=== PATIENT | male | born 1975 | race Caucasian/White ===

== ENCOUNTER 2017-01-28 08:57 | Emergency (ER) | payer SELFPAY ==
[2017-01-28 09:04] VITALS: BP 138/88
--- NOTE | 2017-01-28 09:32 | ER Document Report ---
HPI - HPI Patient complains to provider of: calf pain Onset: Yesterday Onset/Duration: Sudden Quality of pain: Achy Pain Level: 5 Context: [place] the beach [place] when [place] was in the ocean jumping of her ways and he developed sudden calf pain. Range of motion intact with pain with walking and flexion and extension of his ankle. Patient denies any history of blood clots. Denies any direct trauma. As medical history significant for osteoarthritis of bilateral knees and previous discectomy of the cervical spine. Current smoker, denies any drug use, social alcohol use. [facility] - DERM Skin Color: Normal Past Medical History - Social History Smoking Status: Current Every Day Smoker Family History: Reviewed & Not Pertinent Patient has suicidal ideation: No Patient has homicidal ideation: No Renal/ Medical History: Denies: Hx Peritoneal Dialysis Vertical Provider Document - CONSTITUTIONAL Agree With Documented VS: Yes Exam Limitations: No Limitations General Appearance: WD/WN, No Apparent Distress - INFECTION CONTROL TRAVEL OUTSIDE OF THE [place] IN LAST 30 DAYS: No - RESPIRATORY O2 Sat by Pulse Oximetry: 99 - CARDIOVASCULAR Pulses: Normal: Popliteal, Dorsalis pedis - MUSCULOSKELETAL/EXTREMETIES Musculoskeletal/Extremeties: MAEW, FROM, Tender - over calf muscle, No Edema Notes: no erythema - NEURO Level of Consciousness: Awake, Alert, Appropriate Motor/Sensory: No Motor Deficit, No Sensory Deficit - DERM Integumentary: Warm, Dry, No Rash. negative: Abscess, Laceration Course - Re-evaluation Re-evalutation: 01/28/17 09:51 Is a 42-year-old male who is hemodynamic stable, no acute distress and afebrile. Presentation today is consistent with a muscle strain that he suffered from yesterday. Patient educated on anti-inflammatories and ice will be given crutches. Patient educated on range of motion exercises to perform at home. Patient agrees with plan is stable for discharge home - Vital Signs Vital signs: Temp Pulse Resp BP Pulse Ox 97.8 F 70 16 138/88 H 99 01/28/17 09:02 01/28/17 09:02 01/28/17 09:02 01/28/17 09:02 01/28/17 09:02 Discharge - Discharge Clinical Impression: Strain of calf muscle Qualifiers: Encounter type: initial encounter Laterality: right Qualified Code(s): C32.643C - Strain of other muscle(s) and tendon(s) at lower leg level, right leg , initial encounter Condition: Good Disposition: HOME, SELF-CARE Instructions: Muscle Strain ([facility]), Use of Fwbn-Byd-Qanxiev Ibuprofen ([facility]), Ice & Elevation ([facility]) Forms: Special Work Note
[2017-01-28] MEDS ORDERED: IBUPROFEN 800 MG TABLET PO ONE (09:53)
== END 2017-01-28 09:52 | disposition home or self-care (01) ==
LOC: ER 08:57
DX: S86.811A Strain of other muscle(s) and tendon(s) at lower leg level, right leg, initial encounter (principal); M25.561 Pain in right knee; M25.562 Pain in left knee; M79.604 Pain in right leg; M79.605 Pain in left leg; F17.200 Nicotine dependence, unspecified, uncomplicated; X58.XXXA Exposure to other specified factors, initial encounter
CPT/HCPCS: 99283

== ENCOUNTER 2018-08-02 11:44 | Emergency (ER) | payer OTHER ==
--- NOTE | 2018-08-02 13:45 | ER Document Report ---
ED Medical Screen (RME) - General TRAVEL OUTSIDE OF THE [place] IN LAST 30 DAYS: No <RAYSHAWN KEITH - Last Filed: 08/02/18 13:44> <MARTI PETERS - Last Filed: 08/02/18 20:06> - General Chief Complaint: Scrotal Pain, Acute Onset Stated Complaint: TESTICULAR PAIN Time Seen by Provider: 08/02/18 13:44 Notes: Patient says he is having pain in his right testicle for the last 3 days. It has been mostly constant pain. Not certain whether he is having swelling of the testicle. He has had brief episodes of pain in the testicle ever since he was a child. He has had ultrasounds done previously that did not show any abnormalities. Denies any difficulty urinating or any symptoms from urinating. Has not had any discharge. No fevers. No abdominal surgeries. No unusual activities recently. Not straining lifting. PMH: GERD, HTN, chronic pain on oxycodone. (RAYSHAWN KEITH) - Related Data Allergies/Adverse Reactions: Penicillins Allergy (Verified 08/02/18 13:35) Past Medical History - Social History Chew tobacco use (# tins/day): No Frequency of alcohol use: Occasional Drug Abuse: None - Past Medical History Cardiac Medical History: Reports: Hx Hypertension Renal/ Medical History: Denies: Hx Peritoneal Dialysis GI Medical History: Reports: Hx Gastroesophageal Reflux Disease Past Surgical History: Reports: Hx Orthopedic Surgery - neck, right arm - Immunizations Hx Diphtheria, Pertussis, Tetanus Vaccination: Yes <RAYSHAWN KEITH - Last Filed: 08/02/18 13:44> - Vital signs Vitals: Temp Pulse Resp BP Pulse Ox 98.2 F 92 16 133/81 H 94 08/02/18 12:11 08/02/18 12:11 08/02/18 12:11 08/02/18 12:11 08/02/18 12:11 Course - Laboratory Result Diagrams: 08/02/18 16:31 08/02/18 16:31 <MARTI PETERS - Last Filed: 08/02/18 20:06> - Vital Signs Vital signs: Temp Pulse Resp BP Pulse Ox 98.2 F 92 16 133/81 H 94 08/02/18 12:11 08/02/18 12:11 08/02/18 12:11 08/02/18 12:11 08/02/18 12:11 - Laboratory Laboratory results interpreted by me: 08/02/18 08/02/18 16:31 16:31 ESR 16 H Carbon Dioxide 31 H C-Reactive Protein 32.1 H Doctor's Discharge <RAYSHAWN KEITH - Last Filed: 08/02/18 13:44> <MARTI PETERS Iraida - Last Filed: 08/02/18 20:06> - Discharge Clinical Impression: Testicular pain, right, Pelvic pain in male Condition: Stable Disposition: HOME, SELF-CARE Instructions: Pelvic Pain ([facility]), Testicular Pain ([facility]) Additional Instructions: PELVIC PAIN: There are many causes of pain in the pelvic area. The cause could be the t ubes, ovaries, uterus, intestines, appendix, pelvic muscles and connective tissue, or the urinary tract. The cause of your pelvic pain is not clear. However, it seems safe to treat you outside the hospital. If the pain sounds like a temporary problem, we sometimes wait to see if it goes away. Other patients may need additional tests, such as pelvic ultrasound or cultures. Conditions may change. Call us or come back for reexamination if any problems occur, such as: (1) Pain that becomes more severe, steady, or becomes concentrated in one specific area. Also, pain that is more severe with movement or coughing. (2) Vomiting that persists or becomes more frequent. (3) Blood in the vomitus, urine, or bowel movements. Blood in the stool may have a tarry or black appearance. (4) Shaking chills or fever greater than 100 degrees. (5) The abdomen becomes more distended or swollen. (6) Bowel movements cease. (7) Heavy vaginal bleeding. PAIN MEDICATION INJECTION: You have received an injection of a pain medication. You should experience significant pain relief within 45 minutes. This drug is a narcotic -- it will impair your judgement, slow your reaction time and make you sleepy (as well as relieve your pain). Narcotics also can cause nausea. You should not drive, work with machinery, or perform any task requiring mental alertness until all effects of the medication are gone -- six to eight hours. Do not take any alcohol, or sedatives, and do not take any other medication without checking with your physician. ANTIBIOTIC THERAPY: You have been given an antibiotic prescription. It's important that you take all the medication, unless instructed otherwise by your physician. Failure to complete the entire course can result in relapse of your condition. Common side effects of antibiotics include nausea, intestinal cramping, or diarrhea. Women may develop vaginal yeast infections, and babies can get yeast (thrush) in the mouth following the use of antibiotics. Contact your physician if you develop significant side effects from this medication. Allergy to this antibiotic can result in hives, wheezing, faintness, or i tching. If symptoms of allergy occur, stop the medication and call the doctor. CEPHALOSPORINS: An antibiotic of the cephalosporin class has been prescribed. This type of antibiotic covers a wide variety of infections, including those of the skin, lungs, middle ear, and urinary tract. This antibiotic is somewhat similar to the penicillin family. In rare cases, a person who is allergic to penicillin will also be allergic to this medication. If you have had a severe allergic reaction to penicillin, and have not taken this antibiotic since that time, notify your doctor. Antibiotics which cover many germs ("broad spectrum" antibiotics) are more likely to cause diarrhea or "yeast" infections. Women prone to vaginal yeast problems may suffer an attack after taking this antibiotic. In infants, oral thrush (white spots "stuck" on the cheek) or yeast diaper rash may result. See your doctor if these problems occur. Call the doctor at once if you develop hives, itching, shortness of breath, or lightheadedness. DOXYCYCLINE: Doxycycline (Vibramycin, Doryx) is an antibiotic of the tetracycline family. This type of drug is useful for infections of the respiratory tract and genital tract, and is sometimes used for intestinal infections. Unlike most tetracyclines, doxycycline can be taken with food. It is longer acting, and (usually) less prone to side effects than regular tetracycline. Tetracycline antibiotics can stain immature teeth and SHOULD NOT BE TAKEN BY CHILDREN, NURSING MOTHERS, OR WOMEN. Tetracyclines can make you more prone to sunburn. Abdominal cramping, nausea, and diarrhea are occasional side effects. Women may experience vaginal yeast infections. Call the doctor at once if you develop hives, itching, shortness of breath, or lightheadedness. AZITHROMYCIN: Azithromycin (Zithromax) is a broad spectrum antibiotic in the same class as erythromycin. It can treat a variety of bacterial infections, but is most frequently used for respiratory infections. Azithromycin is extremely long-lasting. It accumulates in body tissues and continues to kill bacteria for many days. In order to improve absorption, Azithromycin should be taken at least one hour before or two hours after a meal. It does not have the same strong tendency to upset the stomach as erythromycin and is usually very well t olerated. Patients who have had a rash or other true allergic reactions to erythromycin should not take this medication. Call if you develop gastrointestinal distress, severe diarrhea, rash, hives, itching, or shortness of breath. METRONIDAZOLE: Metronidazole (Flagyl) has been prescribed. This medication is used to kill a type of bacteria called anaerobes, and protozoan parasites such as trichomonas and Giardia. Flagyl often causes a metallic taste in the mouth and mild nausea. Do not use alcohol in any form with Flagyl (including alcohol in medication elixirs). Flagyl interacts with alcohol to cause flushing, palpitations, headache, stomach cramps, and vomiting. Do not use Flagyl if you are taking Antabuse (disulfiram). Call the doctor at once if you develop rash, shortness of breath, itching, or lightheadedness. ORAL NARCOTIC MEDICATION: You have been given a prescription for pain control. This medication is a narcotic. It's best taken with food, as nausea can result if taken on an empty stomach. Don't operate machinery or drive within six hours of taking this medication. Do not combine this medicine with alcohol, or with any medication which can cause sedation (such as cold tablets or sleeping pills) unless you get permission from the physician. Narcotics tend to cause constipation. If possible, drink plenty of fluids and eat a diet high in fiber and fruits. Please be aware that prescription narcotics also have the potential for abuse. People become addicted to these medications because of the general sense of wellbeing that they induce. This feeling along with a significant reduction in tension, anxiety, and aggression provides a stimulating seductive quality to these drugs. Once your pain is under control, we encourage you to discard your unused narcotics. FOLLOW-UP CARE: If you have been referred to a physician for follow-up care, call the physicians office for an appointment as you were instructed or within the next two days. If you experience worsening or a significant change in your symptoms, notify the physician immediately or return to the Emergency Department at any time for re-evaluation.Testicular Pain Sometimes we can't prove the exact cause of testicle pain. Pain in the testicle can be caused by many different problems, including viral infections of the testicle, urinary tract infection, kidney stones, inflammation of the epididymis (the sac behind the testicle), hernia, dilated veins in the scrotum, or subtle injury. The most serious causes of testicular pain are tumor or twisting of the testicle. An ultrasound exam often shows what's wrong. When the initial testing doesn't show a cause for the pain, we usually refer to a urologist. Rest. Gentle warmth may help with symptoms. It's usually helpful to wear underwear that gives good support to the testicles ("briefs" instead of "boxers"). Call the doctor or return if there is sudden worsening of pain, fever, vomiting, testicle swelling, or discoloration of the scrotum. We do not have a urologist to refer to from the hospital however there are some in the area. 1 of the ones that usually will take patients we see And need follow-up is [facility] urology they are located at [address] [place] [address]. in [place], [place] the number there is [phone]. You may try to contact them first thing in the morning to see if they can work you in. Again should you have any concerns or problems return to ER for recheck. Prescriptions: Ketorolac Tromethamine [Toradol 10 mg Tablet] 10 mg PO Q6HP PRN #24 tablet PRN Reason: Hyoscyamine Sulfate [Levsin 0.125 Tablet] 0.25 mg PO Q4 #30 tablet Oxycodone HCl/Acetaminophen [Percocet 5-325 mg Tablet] 1 tab PO Q4H PRN #12 tablet PRN Reason: Forms: Elevated Blood Pressure
[2018-08-02 14:14] LABS: APPEARANCE,URINE CLEAR; BILIRUBIN,URINE NEGATIVE (NEGATIVE); COLOR,URINE YELLOW; GLUCOSE, URINE NEGATIVE (NEGATIVE); KETONES,URINE NEGATIVE (NEGATIVE); LEUKOCYTE ESTERASE,URINE NEGATIVE (NEGATIVE); NITRITE,URINE NEGATIVE (NEGATIVE); PROTEIN,URINE NEGATIVE (NEGATIVE); URINE SPECIFIC GRAVITY 1.016; UROBILINOGEN,URINE NEGATIVE mg/dL (<2.0)
--- NOTE | 2018-08-02 15:12 | RADIOLOGY REPORT (SQ) ---
EXAM DESCRIPTION: U/S SCROTUM W/DOPPLER COMPLETED DATE/TIME: 08/02/2018 3:04 pm REASON FOR STUDY: Painful right testicle times 3 days. COMPARISON: None. TECHNIQUE: Static and realtime franz scale imaging of the scrotum and testes. Selected color Doppler and spectral images recorded to document blood flow. LIMITATIONS: None. FINDINGS: RIGHT: TESTICLE: Normal size. Normal echotexture. Normal blood flow. No mass. EPIDIDYMIS: 2 mm cyst. HYDROCELE OR VARICOCELE: No. HERNIA OR EXTRA-TESTICULAR MASS: No. OTHER: No other significant finding. LEFT: TESTICLE: Normal size. Normal echotexture. Normal blood flow. No mass. EPIDIDYMIS: Normal. HYDROCELE OR VARICOCELE: No. HERNIA OR EXTRA-TESTICULAR MASS: No. OTHER: No other significant finding. IMPRESSION: NO EVIDENCE OF TESTICULAR MASS OR TORSION. TECHNICAL DOCUMENTATION: JOB ID: [id number] [employer]- All Rights Reserved Reading location - IP/workstation name: [email or web address]
[2018-08-02] MEDS ORDERED: ONDANSETRON HCL INJ/PF 4 MG/2 ML SDV IV ONE (15:44)
[2018-08-02] MEDS ORDERED: HYDROMORPHONE HCL INJ/PF 2 MG/ML AMPULE IV ONE ×2 (15:44→17:38)
[2018-08-02 16:46] LABS: ABSOLUTE BASOPHILS # (AUTO) 0.1 10^3/uL (0.0-0.2); ABSOLUTE EOSINOPHILS # (AUTO) 0.3 10^3/uL (0.0-0.6); ABSOLUTE MONOCYTES (AUTO) 0.7 10^3/uL (0.1-1.4); ABSOLUTE NEUT (AUTO) 4.6 10^3/uL (1.7-8.2); BASOPHILS % (AUTO) 0.8 % (0-2); EOSINOPHILS % (AUTO) 3.9 % (0-6); HEMATOCRIT 44.1 % (37.9-51.0); HEMOGLOBIN 15.2 g/dL (13.5-17.0); LYMPHOCYTES % (AUTO) 26.4 % (13-45); MEAN CORPUSCULAR HEMOGLOBIN 31.9 pg (27.0-33.4); MEAN CORPUSCULAR HGB CONC 34.5 g/dL (32.0-36.0); MEAN CORPUSCULAR VOLUME 93 fl (80-97); MONOCYTES % (AUTO) 8.8 % (3-13); PLATELET COUNT 237 10^3/uL (150-450); RED BLOOD COUNT 4.77 10^6/uL (4.35-5.55); RED CELL DISTRIBUTION WIDTH 12.8 % (11.5-14.0); SEGMENTED NEUTROPHILS % (AUTO) 60.1 % (42-78); TOTAL CELLS COUNTED % (AUTO) 100 %; WHITE BLOOD COUNT 7.6 10^3/uL (4.0-10.5)
[2018-08-02 17:17] LABS: ANION GAP 8 (5-19); BLOOD UREA NITROGEN 13 mg/dL (7-20); C-REACTIVE PROTEIN 32.1 mg/L (<10.0); CALCIUM 9.1 mg/dL (8.4-10.2); CARBON DIOXIDE 31 mmol/L (22-30); CHLORIDE 100 mmol/L (98-107); GLUCOSE 94 mg/dL (75-110); POTASSIUM 4.3 mmol/L (3.6-5.0); SODIUM 139.3 mmol/L (137-145)
[2018-08-02 17:24] LABS: ERYTHROCYTE SEDIMENTATION RATE 16 mm/hr (0-15)
[2018-08-02] MEDS ORDERED: KETOROLAC TROMETHAMINE INJ/PF 30 MG/1 ML SDV IV ONE (17:38)
--- NOTE | 2018-08-02 18:36 | RADIOLOGY REPORT (SQ) ---
EXAM DESCRIPTION: CT ABD/PELVIS NO ORAL OR IV COMPLETED DATE/TIME: 08/02/2018 6:24 pm REASON FOR STUDY: Question kidney stone right side COMPARISON: None. TECHNIQUE: CT scan of the abdomen and pelvis performed without intravenous or oral contrast. Images reviewed with lung, soft tissue, and bone windows. Reconstructed coronal and sagittal MPR images revi ewed. All images stored on PACS. All CT scanners at this facility use dose modulation, iterative reconstruction, and/or weight based d osing when appropriate to reduce radiation dose to as low as reasonably achievable (ALARA). [facility]: Dose Right [facility]: CareDose [facility]: Dose Right [facility]: Teradose 4D [facility]: [employer] RADIATION DOSE: CT Rad equipment meets quality standard of care and radiation dose reduction techniq ues were employed. CTDIvol: 12.1 mGy. DLP: 740 mGy-cm.mGy. LIMITATIONS: None. FINDINGS: LOWER CHEST: Atelectasis or scarring at the right lung base. NON-CONTRASTED LIVER, SPLEEN, ADRENALS: Evaluation limited by lack of IV contrast. No identified sign ificant masses. PANCREAS: No masses. No peripancreatic inflammatory changes. GALLBLADDER: No identified stones by CT criteria. No inflammatory changes to suggest cholecystitis. RIGHT KIDNEY AND URETER: No suspicious masses. Assessment limited by lack of IV contrast. No signif icant calcifications. No hydronephrosis or hydroureter. LEFT KIDNEY AND URETER: No suspicious masses. Assessment limited by lack of IV contrast. Peripheral nonobstructive calculus. No hydronephrosis or hydroureter. AORTA AND RETROPERITONEUM: No aneurysm. No retroperitoneal masses or adenopathy. BOWEL AND PERITONEAL CAVITY: No obvious masses or inflammatory changes. No free fluid. APPENDIX: Normal. PELVIS, BLADDER, AND ABDOMINAL WALL:No abnormal masses. No free fluid. Bladder normal. BONES: No significant findings. OTHER: No other significant finding. IMPRESSION: NO SIGNIFICANT OR ACUTE PROCESS IN THE ABDOMEN OR PELVIS. COMMENT: Quality ID # [id number]: Final reports with documentation of one or more dose reduction techniques (e.g., Automated exposure control, adjustment of the mA and/or kV according to patient size, use of iterative reconstruction technique) TECHNICAL DOCUMENTATION: JOB ID: [id number] [employer]- All Rights Reserved Reading location - IP/workstation name: [email or web address]
[2018-08-02 20:22] VITALS: BP 132/82
--- NOTE | 2018-08-03 01:46 | ER Document Report ---
ED GI/ - General Chief Complaint: Scrotal Pain, Acute Onset Stated Complaint: TESTICULAR PAIN Time Seen by Provider: 08/02/18 13:44 Mode of Arrival: Ambulatory Information source: Patient, Relative Notes: I had not saved patient's original chart and I inappropriately canceled it by mistake. This is a recall of that chart. Patient is a 43-year-old male comes emergency room and excess amount of pain. He has complaint of right testicular pain for the past 3 days that is increased substantially over the past 24 hours. Patient states the only time he finds comfort is when he walks. He states it runs down into his right testicle. He also states that he is not been able to sleep for 2 days. The pain is been such that it has not allowed him to sleep. He states that he has had discomfort in his generalized area since he was a teenager it would come last a few minutes and go away. This is the first time this ever lasted any length of time. [facility] and sent him to ER for a testicular ultrasound. stated that the only difference that when she sees it it looks a little more purple than usual. Patient admits to having history of hypertension but does not take any medications currently for he smokes about half pack of cigarettes a day and he works as a cell salesman. Currently patient does not have a primary care provider. Patient was originally documented at 1431 abuse and ultrasound for over 2 hours. TRAVEL OUTSIDE OF THE [place] IN LAST 30 DAYS: No - HPI Patient complains to provider of: Testicular pain Onset: Other - 3 days Timing/Duration: Sudden, Persistent, Worse Quality of pain: Sharp, Stabbing, Throbbing Severity at maximum: Severe Severity in ED: Severe Pain Level: 5 Context: denies: Lifting, Out of the country travel, , Recent trauma, Other Location: Right testicle. No: Left flank, Right flank, Low back, Suprapubic Sexual history: Active Associated symptoms: denies: Dysuria, Erection problem, Fever, Penile discharge, Radiates to back, Shortness of breath, Urinary frequency, Urinary retention, Urinary urgency, Vomiting Exacerbated by: Supine, Sitting, Standing, Movement. denies: Walking Relieved by: Other Similar symptoms previously: Yes Recently seen / treated by doctor: No - Related Data Allergies/Adverse Reactions: Penicillins Allergy (Verified 08/02/18 13:35) Past Medical History - General Information source: Patient, Relative - Social History Smoking Status: Current Every Day Smoker Cigarette use (# per day): Yes Chew tobacco use (# tins/day): No Smoking Education Provided: Yes Frequency of alcohol use: None Drug Abuse: None Lives with: Family Family History: Reviewed & Not Pertinent Patient has suicidal ideation: No Patient has homicidal ideation: No - Past Medical History Cardiac Medical History: Reports: Hx Hypertension Renal/ Medical History: Denies: Hx Peritoneal Dialysis GI Medical History: Reports: Hx Gastroesophageal Reflux Disease Past Surgical History: Reports: Hx Orthopedic Surgery - neck, right arm - Immunizations Hx Diphtheria, Pertussis, Tetanus Vaccination: Yes Review of Systems - Review of Systems Constitutional: No symptoms reported EENT: No symptoms reported Cardiovascular: No symptoms reported Respiratory: No symptoms reported Gastrointestinal: No symptoms reported. denies: Abdominal pain Genitourinary: See HPI, Pain Male Genitourinary: See HPI, Testicular pain. denies: Erectile dysfunction, Penile discharge Musculoskeletal: No symptoms reported Skin: No symptoms reported Hematologic/Lymphatic: No symptoms reported Neurological/Psychological: No symptoms reported -: Yes All other systems reviewed and negative Physical Exam - Vital signs Vitals: Temp Pulse Resp BP Pulse Ox 98.2 F 92 16 133/81 H 94 08/02/18 12:11 08/02/18 12:11 08/02/18 12:11 08/02/18 12:11 08/02/18 12:11 Interpretation: Hypertensive - Notes Notes: PHYSICAL EXAMINATION: GENERAL: Patient is a well-nourished well-developed 43-year-old male who is in no apparent distress but in obvious pain and discomfort. Patient not able to find a position of comfort [place] still holding his testicles. He is actually walking back and forth and mild diaphoresis. HEAD: Atraumatic, normocephalic. NECK: Normal range of motion, supple without lymphadenopathy LUNGS: Breath sounds clear to auscultation bilaterally and equal. No wheezes rales or rhonchi. HEART: Regular rate and rhythm without murmurs ABDOMEN: Examination patient's abdomen is totally benign. He has bowel sounds in all 4 quads. Is soft nontender nondistended even in the pelvic region there is no reproducible tenderness to palpation or percussion or even deep ballottement in the lower portions of the lower abdomen. He has some very faint mild tenderness in the suprapubic region to palpation and ballottement. Testicular exam is also benign. Patient standing both testicles hanging equally. Cremaster reflex is normal and both sides. Palpation of each testicle shows no epididymal tenderness. In following the inguinal canal on both sides there is no tenderness to palpation there is no sign of a hernia. I cannot reproduce any type of pain the patient states exist there currently. It appears the patient is not pretending and he is really in serious amount of discomfort and pain but I cannot localize it to any one area. I cannot localize it to any area. I examined him over and over again without any causative reason for him to hurt. Musculoskeletal: Normal range of motion, no pitting or edema. No cyanosis. NEUROLOGICAL: . Normal speech, normal gait. Normal sensory, motor exams PSYCH: Normal mood, normal affect. SKIN: Warm, Dry, normal turgor, no rashes or lesions noted. Course - Re-evaluation Re-evalutation: 08/03/18 01:50 As stated I was unable to find any cause of reason the patient was hurting so badly. I discussed the case with Dr. Villa again we decided to go ahead and do a CT of the abdomen and pelvis in case we are missing a stone even though there was no blood in his urine I also did add on some labs added on a sed rate and CRP. CRP came back extensively elevated at 31 and the sed rate came back at 16 which is one-point higher than normal. I not exactly sure what this means white count was normal so I do not believe this to be an infectious process but it could be an inflammatory type of a presentation. At any given rate accident with patient and and discussed it with them he is pretty much out of pain after receiving another milligram of Dilaudid and Toradol. I still send him home on pain medication though he is taking in chronic pain medication for his neck I have written on the prescription and put in his note that he must contact him first his primary to okay an additional amount of medication for the discom fort and pain he is feeling an acute setting. Other than that he will lose his contract and I made this quite clear. I also gave him some Toradol tablets seen so it seemed to help some as well and something for nausea. I have given him the name of [facility]rology and a number to call here in her local office in [place]. I have informed him that I cannot find anything this could harm him tonight and that we got his pain under control and he needs to follow- up with urology for the rest of it. Patient was more than happy with the care that he received as was his . I informed them I am happy you can find anything serious which to me is a when. So often we find things we do not want to find have to explain him. At this time I am discharging patient home with the medications as discussed and he will follow-up with [facility] tomorrow. 08/03/18 01:52 As stated in the open I inadvertently hit a your ice on my note what I thought I was going back in to a REM note and so I not exactly sure of the time the patient was discharged that here. - Vital Signs Vital signs: Temp Pulse Resp BP Pulse Ox 98.3 F 83 13 132/82 H 96 08/02/18 20:19 08/02/18 20:19 08/02/18 20:19 08/02/18 20:19 08/02/18 20:19 - Laboratory Result Diagrams: 08/02/18 16:31 08/02/18 16:31 Laboratory results interpreted by me: 08/02/18 08/02/18 16:31 16:31 ESR 16 H Carbon Dioxide 31 H C-Reactive Protein 32.1 H Discharge - Discharge Clinical Impression: Testicular pain, right, Pelvic pain in male Condition: Stable Disposition: HOME, SELF-CARE Instructions: Pelvic Pain ([facility]), Testicular Pain ([facility]) Additional Instructions: PELVIC PAIN: There are many causes of pain in the pelvic area. The cause could be the tubes, ovaries, uterus, intestines, appendix, pelvic muscles and connective tissue, or the urinary tract. The cause of your pelvic pain is not clear. However, it seems safe to treat you outside the hospital. If the pain sounds like a temporary problem, we sometimes wait to see if it goes away. Other patients may need additional tests, such as pelvic ultrasound or cultures. Conditions may change. Call us or come back for reexamination if any problems occur, such as: (1) Pain that becomes more severe, steady, or becomes concentrated in one specific area. Also, pain that is more severe with movement or coughing. (2) Vomiting that persists or becomes more frequent. (3) Blood in the vomitus, urine, or bowel movements. Blood in the stool may have a tarry or black appearance. (4) Shaking chills or fever greater than 100 degrees. (5) The abdomen becomes more distended or swollen. (6) Bowel movements cease. (7) Heavy vaginal bleeding. PAIN MEDICATION INJECTION: You have received an injection of a pain medication. You should experience significant pain relief within 45 minutes. This drug is a narcotic -- it will impair your judgement, slow your reaction time and make you sleepy (as well as relieve your pain). Narcotics also can cause nausea. You should not drive, work with machinery, or perform any task requiring mental alertness until all effects of the medication are gone -- six to eight hours. Do not take any alcohol, or sedatives, and do not take any other medication without checking with your physician. ANTIBIOTIC THERAPY: You have been given an antibiotic prescription. It's important that you take all the medication, unless instructed otherwise by your physician. Failure to complete the entire course can result in relapse of your condition. Common side effects of antibiotics include nausea, intestinal cramping, or diarrhea. Women may develop vaginal yeast infections, and babies can get yeast (thrush) in the mouth following the use of antibiotics. Contact your physician if you develop significant side effects from this medication. Allergy to this antibiotic can result in hives, wheezing, faintness, or itching. If symptoms of allergy occur, stop the medication and call the doctor. CEPHALOSPORINS: An antibiotic of the cephalosporin class has been prescribed. This type of antibiotic covers a wide variety of infections, including those of the skin, lungs, middle ear, and urinary tract. This antibiotic is somewhat similar to the penicillin family. In rare cases, a person who is allergic to penicillin will also be allergic to this medication. If you have had a severe allergic reaction to penicillin, and have not taken this antibiotic since that time, notify your doctor. Antibiotics which cover many germs ("broad spectrum" antibiotics) are more likely to cause diarrhea or "yeast" infections. Women prone to vaginal yeast problems may suffer an attack after taking this antibiotic. In infants, oral thrush (white spots "stuck" on the cheek) or yeast diaper rash may result. See your doctor if these problems occur. Call the doctor at once if you develop hives, itching, shortness of breath, or lightheadedness. DOXYCYCLINE: Doxycycline (Vibramycin, Doryx) is an antibiotic of the tetracycline family. This type of drug is useful for infections of the respiratory tract and genital tract, and is sometimes used for intestinal infections. Unlike most tetracyclines, doxycycline can be taken with food. It is longer acting, and (usually) less prone to side effects than regular tetracycline. Tetracycline antibiotics can stain immature teeth and SHOULD NOT BE TAKEN BY CHILDREN, NURSING MOTHERS, OR WOMEN. Tetracyclines can make you more prone to sunburn. Abdominal cramping, ines sea, and diarrhea are occasional side effects. Women may experience vaginal yeast infections. Call the doctor at once if you develop hives, itching, shortness of breath, or lightheadedness. AZITHROMYCIN: Azithromycin (Zithromax) is a broad spectrum antibiotic in the same class as erythromycin. It can treat a variety of bacterial infections, but is most frequently used for respiratory infections. Azithromycin is extremely long-lasting. It accumulates in body tissues and continues to kill bacteria for many days. In order to improve absorption, Azithromycin should be taken at least one hour before or two hours after a meal. It does not have the same strong tendency to upset the stomach as erythromycin and is usually very well tolerated. Patients who have had a rash or other true allergic reactions to erythromycin should not take this medication. Call if you develop gastrointestinal distress, severe diarrhea, rash, hives, itching, or shortness of breath. METRONIDAZOLE: Metronidazole (Flagyl) has been prescribed. This medication is used to kill a type of bacteria called anaerobes, and protozoan parasites such as trichomonas and Giardia. Flagyl often causes a metallic taste in the mouth and mild nausea. Do not use alcohol in any form with Flagyl (including alcohol in medication elixirs). Flagyl interacts with alcohol to cause flushing, palpitations, headache, stomach cramps, and vomiting. Do not use Flagyl if you are taking Antabuse (disulfiram). Call the doctor at once if you develop rash, shortness of breath, itching, or lightheadedness. ORAL NARCOTIC MEDICATION: You have been given a prescription for pain control. This medication is a narcotic. It's best taken with food, as nausea can result if taken on an empty stomach. Don't operate machinery or drive within six hours of taking this medication. Do not combine this medicine with alcohol, or with any medication which can cause sedation (such as cold tablets or sleeping pills) unless you get permission from the physician. Narcotics tend to cause constipation. If possible, drink plenty of fluids and eat a diet high in fiber and fruits. Please be aware that prescription narcotics also have the potential for abuse. People become addicted to these medications because of the general sense of wellbeing that they induce. This feeling along with a significant reduction in tension, anxiety, and aggression provides a stimulating seductive quality to these drugs. Once your pain is under control, we encourage you to discard your unused narcotics. FOLLOW-UP CARE: If you have been referred to a physician for follow-up care, call the physicians office for an appointment as you were instructed or within the next two days. If you experience worsening or a significant change in your symptoms, notify the physician immediately or return to the Emergency Department at any time for re-evaluation.Testicular Pain Sometimes we can't prove the exact cause of testicle pain. Pain in the testicle can be caused by many different problems, including viral infections of the testicle, urinary tract infection, kidney stones, inflammation of the epididymis (the sac behind the testicle), hernia, dilated veins in the scrotum, or subtle injury. The most serious causes of testicular pain are tumor or twisting of the testicle. An ultrasound exam often shows what's wrong. When the initial testing doesn't show a cause for the pain, we usually refer to a urologist. Rest. Gentle warmth may help with symptoms. It's usually helpful to wear underwear that gives good support to the testicles ("briefs" instead of "box ers"). Call the doctor or return if there is sudden worsening of pain, fever, vomiting, testicle swelling, or discoloration of the scrotum. We do not have a urologist to refer to from the hospital however there are some in the area. 1 of the ones that usually will take patients we see And need follow-up is [facility] they are located at [address] [place] [address]. in [place], [place] the number there is [phone]. You may try to contact them first thing in the morning to see if they can work you in. Again should you have any concerns or problems return to ER for recheck. Prescriptions: Ketorolac Tromethamine [Toradol 10 mg Tablet] 10 mg PO Q6HP PRN #24 tablet PRN Reason: Hyoscyamine Sulfate [Levsin 0.125 Tablet] 0.25 mg PO Q4 #30 tablet Oxycodone HCl/Acetaminophen [Percocet 5-325 mg Tablet] 1 tab PO Q4H PRN #12 tablet PRN Reason: Forms: Elevated Blood Pressure, Return to Work
== END 2018-08-02 20:30 | disposition home or self-care (01) ==
LOC: ER 11:44
DX: N50.811 Right testicular pain (principal); R10.2 Pelvic and perineal pain; I10 Essential (primary) hypertension; F17.210 Nicotine dependence, cigarettes, uncomplicated; R61 Generalized hyperhidrosis; Z79.899 Other long term (current) drug therapy; Z88.0 Allergy status to penicillin
CPT/HCPCS: 96376; 99284; 96374; 96375; 36415; 85025; 85652; 86140; 80048; 81001; 76870; 93976; 74176; J1885; J1170; J2405

== ENCOUNTER 2019-08-26 07:43 | Emergency (ER) | payer OTHER ==
--- NOTE | 2019-08-26 09:09 | ER Document Report ---
HPI - HPI Time Seen by Provider: 08/26/19 08:52 Pain Level: 3 Context: Patient is a 44-year-old male who presents to the emergency department with a chief complaint of right lower jaw pain. He noticed it yesterday and today got progressively worse. Patient states he has not had any antibiotics. He states he is not sure if it is his tooth or his jaw. Denies any fever, shortness of breath, difficulty breathing, body aches. - EENT EENT: DENIES: Sore Throat, Ear Pain, Eye problems - NEURO Neurology: DENIES: Headache, Weakness, Vision blurred, Dizzinesss / Vertigo - CARDIOVASCULAR Cardiovascular: DENIES: Chest pain - RESPIRATORY Respiratory: DENIES: Trouble Breathing, Coughing - GASTROINTESTINAL Gastrointestinal: DENIES: Abdominal Pain, Black / Bloody Stools - URINARY Urinary: DENIES: Dysuria, Urgency, Frequency - REPRODUCTIVE Reproductive: DENIES: : - MUSCULOSKELETAL Musculoskeletal: DENIES: Extremity pain Past Medical History - General Information source: Patient - Social History Smoking Status: Current Every Day Smoker Frequency of alcohol use: Occasional Drug Abuse: None Family History: Reviewed & Not Pertinent Patient has suicidal ideation: No Patient has homicidal ideation: No - Past Medical History Cardiac Medical History: Reports: Hx Hypertension Renal/ Medical History: Denies: Hx Peritoneal Dialysis GI Medical History: Reports: Hx Gastroesophageal Reflux Disease Past Surgical History: Reports: Hx Orthopedic Surgery - neck, right arm - Immunizations Hx Diphtheria, Pertussis, Tetanus Vaccination: Yes Vertical Provider Document - CONSTITUTIONAL Agree With Documented VS: Yes Exam Limitations: No Limitations General Appearance: No Apparent Distress - INFECTION CONTROL TRAVEL OUTSIDE OF THE [place] IN LAST 30 DAYS: No - HEENT HEENT: Atraumatic, Normocephalic, PERRLA. negative: Pharyngeal Exudate, Pharyngeal Tenderness, Pharyngeal Erythema, Tympanic Membrane Red, Tympanic Membrane Bulging Mouth Diagram: 1 - Dental carry noted - NECK Neck: Normal Inspection - RESPIRATORY Respiratory: Breath Sounds Normal, No Respiratory Distress - CARDIOVASCULAR Cardiovascular: Regular Rate, Regular Rhythm Pulses: Normal: Radial - MUSCULOSKELETAL/EXTREMETIES Musculoskeletal/Extremeties: FROM - NEURO Level of Consciousness: Awake, Alert, Appropriate Motor/Sensory: No Motor Deficit, No Sensory Deficit - DERM Integumentary: Warm, Dry, No Rash Course - Re-evaluation Re-evalutation: 08/26/19 09:05 Patient's physical exam and history is most consistent with a infected tooth. Patient is able to swallow, no facial swelling noted, airway is patent, vital signs are normal. I do not suspect Darryl's angina, peritonsilar abscess, or airway obstruction. The patient will be started on oral antibiotics. I have given the patient education on their antibiotics. Patient was given ins tructions to follow-up with a dentist this week. Return precautions were given. Verbal discharge instructions were given. Patient verbalized understanding. Patient is stable for discharge. - Vital Signs Vital signs: Temp Pulse Resp BP Pulse Ox 98.2 F 92 18 185/84 H 97 08/26/19 07:50 08/26/19 07:50 08/26/19 07:50 08/26/19 07:50 08/26/19 07:50 Discharge - Discharge Clinical Impression: Jaw pain, Toothache Condition: Stable Disposition: HOME, SELF-CARE Instructions: Clind[facility]), Toothache ([facility]) Additional Instructions: You have been seen in the emergency department for a toothache. You may take ibuprofen 600 mg and Tylenol 1000 mg every 6 hours as needed for the pain. You have also been given topical lidocaine. Placed that to the affected tooth as needed to help with pain. You have also been prescribed antibiotics. Please take the antibiotics as prescribed, even if you start to feel better. If you develop a fever greater than 100.4 F, or have any symptoms that are worrisome to you, please return to the emergency department. Please follow-up with a dentist this week in regards to your visit. Prescriptions: Clindamycin HCl [Cleocin 150 mg Capsule] 300 mg PO Q6 7 Days #56 capsule Referrals: [facility] [Primary [facility] Provider] - Follow up as needed [facility] [Provider Group] - Follow up in 1 week
[2019-08-26] MEDS ORDERED: LIDOCAINE 2% VISCOUS SOLN 15 ML UDCUP PO ONE (09:10)
[2019-08-26 09:25] VITALS: BP 144/89
== END 2019-08-26 09:26 | disposition home or self-care (01) ==
LOC: ER 07:43
DX: K02.9 Dental caries, unspecified (principal); R68.84 Jaw pain; F17.200 Nicotine dependence, unspecified, uncomplicated; I10 Essential (primary) hypertension
CPT/HCPCS: 99283; J3490